=== PATIENT | male | born 1960 | race Caucasian/White ===

== ENCOUNTER 2016-12-27 00:08 | Emergency (ER) | payer BC, OTHER ==
[2016-12-27 02:21] LABS: BILIRUBIN TOTAL 1.02 mg/dL (0.20-1.00); CALCIUM 9.1 mg/dL (8.5-10.1); CARBON DIOXIDE 27.1 mmol/L (21-32); POTASSIUM SERUM 4.8 mmol/L (3.5-5.1); TOTAL PROTEIN, SERUM 7.9 g/dL (6.4-8.2)
[2016-12-27 02:27] LABS: BASOPHIL % 2.9 % (0-2); PLATELET COUNT 125 x10^3mcL (130-400); RED CELL DISTRIBUTION WIDTH 18.5 % (11.5-14.5)
[2016-12-27 02:35] LABS: CREATININE SERUM 6.2 mg/dL (0.7-1.3)
[2016-12-27 03:52] LABS: MAGNESIUM 2.7 mg/dL (1.8-2.4); PHOSPHOROUS 5.6 mg/dL (2.5-4.9)
[2016-12-27 03:55] LABS: CHOLESTEROL/HDL RATIO 1.6
[2016-12-27 03:59] LABS: FREE T4 1.22 ng/dL (0.76-1.46); FREE THYROXINE INDEX 2.9 ug/dL (1.4-4.5); T4(THYROXINE) 8.4 ug/dL (4.7-13.3)
[2016-12-27] MEDS ORDERED: CALCIUM ACETAT667 M3 PO (04:23)
[2016-12-27] MEDS ORDERED: MIN10 PO (04:29)
[2016-12-27] MEDS ORDERED: VITAMIN D400 UNIT (04:29)
[2016-12-27] MEDS ORDERED: RENAL VITAMIN0.8 MG (04:30)
[2016-12-27 04:48] LABS: T3 TOTAL 0.78 ng/mL
[2016-12-27 09:39] LABS: BASOPHIL % 0.7 % (0-2)
[2016-12-27 09:44] LABS: PLATELET COUNT 108 x10^3mcL (130-400); RED CELL DISTRIBUTION WIDTH 19.3 % (11.5-14.5)
[2016-12-27 13:00] VITALS: BP 159/84
== END 2016-12-27 13:00 | disposition short-term general hospital (02) ==
LOC: ED 00:08
PROVIDERS: Emergency Medicine; Family Medicine
DX: R04.0 Epistaxis (principal); I10 Essential (primary) hypertension; Z79.899 Other long term (current) drug therapy
CPT/HCPCS: 83880; 84439; J2405; J3010; Q0092

== ENCOUNTER 2018-10-03 23:30 | Emergency (ER) | payer BC, OTHER ==
[~2018-10-03 23:30] MED LIST: CALCIUM ACETAT667 M3 PO; MIN10 PO; RENAL VITAMIN0.8 MG; VITAMIN D400 UNIT
[2018-10-03 23:33] VITALS: Ht 175.3 cm
[2018-10-04 00:36] LABS: BASOPHIL % 0.8 % (0-2); PLATELET COUNT 130 x10^3mcL (130-400)
[2018-10-04 00:51] LABS: RED CELL DISTRIBUTION WIDTH 16.3 % (11.5-14.5)
[2018-10-04 00:54] LABS: CALCIUM 9.2 mg/dL (8.5-10.1); CARBON DIOXIDE 27.8 mmol/L (21-32); CREATININE SERUM 7.1 mg/dL (0.7-1.3); POTASSIUM SERUM 4.1 mmol/L (3.5-5.1)
[2018-10-04 02:09] VITALS: BP 162/95
== END 2018-10-04 02:09 | disposition home or self-care (01) ==
LOC: ED 23:30
PROVIDERS: Emergency Medicine
DX: R04.0 Epistaxis (principal); I10 Essential (primary) hypertension